=== PATIENT | female | born 1970 | race Caucasian/White ===

== ENCOUNTER 2025-01-14 12:31 | Outpatient (CLI) | payer OTHER, SELFPAY ==
--- OUTSIDE RECORDS SUMMARY | 2025-01-14 12:38 | XMS_ITS | Clinical Summary ---
Author Organization [facility] Address [address] [place] [address] Phone Care Team Providers Care Family Medicine Chair Name Role Phone Unavailable Primary Care Provider Unavailabl e Encounters Date Type Department Care Team Description 01/10/2025 11:28 AM CDT - 01/10/2025 11:59 PM CDT Hospital Encounter [facility] [address] [place] [phone] Elisa Eckert DO Arrived Discharge Disposition: Home or Self Care 01/09/2025 Transcribe Orders Central Test Scheduling [address] [place] [address] Elisa Eckert DO Visit for screening mammogram (Primary Dx) 01/09/2025 Transcribe Orders [facility] [place] [address] [place] [address] Elisa Eckert DO from Last 3 Months Social History Tobacco Use Types Packs/Day Years Used Date Smoking Tobacco: Never Assessed Comments No Sex and Gender Information Value Date Recorded Sex Assigned at Not on file Legal Sex Female 1:19 PM CDT Gender Identity Not on file Sexual Orientation Not on file Plan of Treatment Health Maintenance Due Date Last Done Comments DTAP/TDAP/TD VACCINES (1 - Tdap) 1987 HEPATITIS B VACCINES (1 of 3 - 19+ 3-dose series) 1987 HPV/Cotest (21-29) 1989 CERVICAL CANCER SCREENING 1998 HPV/Cotest (30-65) 1998 PAP SMEAR 1998 COLORECTAL SCREENING 2013 Colorectal Cancer Screening 2013 FIT-DNA Q 3 years 2013 FIT/FOBT Q 1 year 2013 Flex Sig/CT Colonography Q 5 years 2013 ZOSTER VACCINE (1 of 2) 2018 Preventative Visit- Commercial 05/23/2024 INFLUENZA VACCINE (#1) 2024 BREAST CANCER SCREENING 01/10/2026 01/11/20 25, 02/16/2024, 02/16/2024, Additional history exists Procedures Procedure Name Priority Date/Time Associated Diagnosis Comments MAMMO 3D VERA SCREEN BILAT W OR WO CAD Routine 01/10/2025 11:42 AM CDT Visit for screening mammogram from Last 3 Months Results * MAMMO 3D VERA SCREEN BILAT W OR WO CAD (01/10/2025 11:42 AM CDT) Anatomical Region Laterality Modality Breast Bilateral Mammography Impressions 01/10/2025 3:42 PM CDT IMPRESSION: BI-RADS 1- Negative. RECOMMENDATION: Recommend patient return in 1 year for annual screening mammogram. Electronically signed by: EMILY LLOYD M.D. Date: 01/10/2025 Time: 15:33 Narrative 01/10/2025 3:42 PM CDT EXAM: BILATERAL DIGITAL SCREENING MAMMOGRAM. TECHNIQUE: Bilateral digital CC and MLO images with tomosynthesis. HISTORY: Routine screening mammogram. COMPARISON: Multiple prior studies. FINDINGS: The breasts are heterogeneously dense, which may obscure small masses. There is no dominant mass, suspicious microcalcifications, or architectural distortion in either breast. Elisa Eckert DO MAMMO ORDERABLES Final Result from Last [address] [place] [id number] [employer] [facility] [facility]
--- OUTSIDE RECORDS SUMMARY | 2025-01-14 12:38 | XMS_ITS | Clinical Summary ---
Author Organization [facility] Address [address] [place] [address] Care Team Providers Care Assistant Professor Surgical Technology Name Role Phone Agnes Eckert MEAT PUMPER-C Primary Care Provider [phone]- [phone] Allergies Active Allergy Reactions Criticality Noted Date Comments Penicillins Rash Social History Tobacco Use Types Packs/Day Years Used Date Smoking Tobacco: Never Assessed Comments Unknown Sex and Gender Information Value Date Recorded Sex Assigned at Not on file Legal Sex Female 8:01 PM CDT Gender Identity Not on file Sexual Orientation Not on file Plan of Treatment Health Maintenance Due Date Last Done Comments Annual Wellness 1968 Pap Smear 1989 Td, Tdap Vaccines Adult 08/20/2004 08/20/1994 Colonoscopy 2013 Pneumococcal Vaccine: 50+ Years (1 of 1 - PCV) 2018 Shingrix (ZOSTER RECOMBINANT) (1 of 2) 2018 Influenza Vaccination (#1) 2024 03/17/2015 Mammogram 02/15/2025 02/16/2024, 10/21, 06/19/2021, Additional history exists Hepatitis B Vaccines Completed 07/23/1998, 11/14/1997, 10/10/1997 HIB Vaccines Aged Out No longer eligi ble based on patient's age to complete this topic HPV Vaccines Aged Out No longer eligi ble based on patient's age to complete this topic Hepatitis A Vaccines Aged Out No long er eligible based on patient's age to complete this topic IPV Vaccines Aged Out No longer eligi ble based on patient's age to complete this topic Meningococcal Vaccines Aged Out No lo nger eligible based on patient's age to complete this topic RSV Mab Nirsevimab (Beyfortus) <20 months Aged Out No longer eligibl e based on patient's age to complete this topic Rotavirus Vaccines Aged Out No longer eligible based on patient's age to complete this topic Procedures Procedure Name Priority Date/Time Associated Diagnosis Comments MG SCREENING BILATERAL Routine 02/16/2024 11:11 AM CDT Encounter for screening mammogram for malignant neoplasm of breast from Last 3 Months or Most Recently Relevant to Health Maintenance Results * Mammography Screening BILATERAL (02/16/2024 11:11 AM CDT) Anatomical Region Laterality Modality Breast Bilateral Mammography 02/16/2024 11:0 2 AM CDT Narrative 02/16/2024 11:49 AM CDT #[id number] - MG SCREENING BILATERAL BILATERAL DIGITAL SCREENING MAMMOGRAM 3D/2D WITH CAD: 02/16/2024 CLINICAL: Screening mammogram routine. Comparison is made to exams dated: 11/05/2022 mammogram, 06/19/2021 mammogram, 12/27/2019 mammogram, and 05/26/2018 mammogram - [facility]. The breasts are heterogeneously dense, which may obscure small masses. This exam was evaluated with digital breast tomosynthesis. Current study was also evaluated with a Computer Aided Detection (CAD) system. No significant masses, calcifications, or other findings are seen in either breast. There has been no significant interval change. IMPRESSION: NEGATIVE There is no mammographic evidence of malignancy. A 1 year screening mammogram is recommended. Based on the NCI/NSABP BCRA tool, this patient's calculated 5-year risk for developing breast cancer is 0.8% and lifetime risk is 5.5%. The patient was notified of the results. Sylvain doe/sourav:02/16/2024 11:49:32 Instructor Dancing(s): RT Graeme(R)(M), [facility] letter sent: Mammography Normal Mammogram BI-RADS: Category 1: Negative Procedure Note Sylvain Fall MD - 02/16/2024 #[id number] - MG SCREENING BILATERAL BILATERAL DIGITAL SCREENING MAMMOGRAM 3D/2D WITH CAD: 02/16/2024 CLINICAL: Screening mammogram routine. Comparison is made to exams dated: 11/05/2022 mammogram, 06/19/2021mammogram, 12/27/2019 mammogram, and 05/26/2018 mammogram - [facility]. The breasts are heterogeneously dense, which mayobscure small masses. This exam was evaluated with digital breast tomosynthesis. Current studywas also evaluated with a Computer Aided Detection (CAD) system. No significant masses, calcifications, or other findings are seen ineither breast. There has been no significant interval change. IMPRESSION: NEGATIVE There is no mammographic evidence of malignancy. A 1 year screeningmammogram is recommended. Based on the NCI/NSABP BCRA tool, this patient's calculated 5-year riskfor developing breast cancer is 0.8% and lifetime risk is 5.5%. The patient was notified of the results. Sylvain doe/sourav:02/16/2024 11:49:32 Instructor Dancing(s): RT Graeme(R)(M), [facility] letter sent: Mammography Normal Mammogram BI-RADS: Category 1: Negative Agnes SCHULER IMG MG ORDERABLES Final Re sult from Last 3 Months or Most Recently Relevant to Health Maintenance Care Teams Assistant Professor Surgical Technology Relationship Specialty Start Date End Date Agnes Eckert NP-C [address] [place] [id number] PCP - General Nurse Practitioner 12/27/19
[2025-01-14 13:31] LABS: Iron 94 ug/dL (37-170)
== END 2025-01-14 12:32 | disposition home or self-care (01) ==
LOC: ANHLAB 12:35
PROVIDERS: Visit Provider Surgery Plastic and Reconstructive Surgery
DX: I78.0 Hereditary hemorrhagic telangiectasia (principal)
CPT/HCPCS: 36415; 83540